=== PATIENT | male | born 1955 | race African-American/Black ===

== ENCOUNTER 2018-06-14 12:02 | Emergency (ER) | payer OTHER ==
[~2018-06-14] VITALS: Ht 167.6 cm; Wt 95.4 kg
[2018-06-14 12:06] VITALS: Ht 167.6 cm; Wt 95.4 kg
--- NOTE | 2018-06-14 15:48 | ERD ---
ER Documentation Chief Complaint Chief Complaint Complains of a cough cold and flu symptoms x 1 week HPI 62-year-old male, previously healthy, presents to the emergency department, complaining of worsening of cough, runny nose, chest congestion and subjective fever for 1 week. Otherwise, the patient denies chest pain, no shortness of breath, no leg edema. The patient has been taking [id number] medication without improvement of the symptoms. ROS All systems reviewed and are negative except as per history of present illness. Medications Home Meds Active Scripts Inhaler, Assist Devices (Compact Space Chamber) 1 Each Spacer, EACH MC Q4 for cough, #1 Prov:SIVA FLORES MD 06/14/18 Guaifenesin-Codeine Phosphate* (Robitussin* AC) 5 Ml Syrup, 5 ML PO TID PRN for COUGH, #60 ML Prov:SIVA FLORES MD 06/14/18 Albuterol Sulfate* (Ventolin HFA*) 18 Gm Hfa.aer.ad, 2 PUFF INHALATION Q4H for cough, #1 INHALER Prov:SIVA FLORES MD 06/14/18 Amoxicillin* (Amoxicillin*) 500 Mg Cap, 500 MG PO TID for 7 Days, CAP Prov:SIVA FLORES MD 06/14/18 Azithromycin* (Zithromax*) 250 Mg Tablet, 250 MG PO .ZPACK DIRECTED, #6 TAB TAKE 500 MG (2 TABS) THE FIRST DAY THEN 250 MG (1 TAB) DAYS 2-5 Prov:SIVA FLORES MD 06/14/18 Allergies Allergies: Coded Allergies: No Known Allergy (Unverified , 06/14/18) PMhx/Soc History of Surgery: No Anesthesia Reaction: No Hx Neurological Disorder: No Hx Respiratory Disorders: No Hx Cardiac Disorders: Yes (HTN) Hx Psychiatric Problems: No Hx Miscellaneous Medical Probl: No Hx Alcohol Use: No Hx Substance Use: No Hx Tobacco Use: No Smoking Status: Never smoker FmHx Family History: No diabetes, No coronary disease Physical Exam Vitals Vital Signs Date Temp Pulse Resp B/P (MAP) Pulse Ox O2 O2 Flow FiO2 Time Delivery Rate 06/14/18 98.6 88 15 131/81 96 Room Air 16:05 (98) 06/14/18 97.7 70 20 157/83 96 12:06 (107) Physical Exam Const: No acute distress Head: Atraumatic Eyes: Normal Conjunctiva ENT: Normal External Ears, Nose and Mouth. Neck: Full range of motion. No meningismus. Resp: Significant rhonchi to auscultation bilaterally Cardio: Regular rate and rhythm, no murmurs Abd: Soft, non tender, non distended. Normal bowel sounds Skin: No petechiae or rashes Back: No midline or flank tenderness Ext: No cyanosis, or edema Neur: Awake and alert Psych: Normal Mood and Affect Procedures/MDM At the time of discharge, patient with nontoxic appearance, vital signs stable, no respiratory distress. Differential diagnosis include but not limited to: Respiratory infection bacterial/viral/fungal. Influenza, COPD, asthma, pneumonia, pneumonitis, allergies, GERD. Less likely foreign body aspiration, cardiac related. Physical examination and clinical presentation consistent most likely with viral infection with early superimposed bacterial infection. During the ED course the patient remained stable, no new complaints. Treatment options and clinical impression discussed with the patient who agrees with management. The patient is stable to be treated outpatient and will be discharged home. Some side effects of prescribed medications (headache, rash, nausea, vomiting, diarrhea, interactions with other medications) were reviewed. The patient needs to follow up with the primary care provider in the next 48h. If symptoms persist, worsen or new symptoms develop, then patient should return to the ED immediately. Disclaimer: Inadvertent spelling and grammatical errors are likely due to EHR/dictation software use and do not reflect on the overall quality of patient care. Also, please note that the electronic time recorded on this note does not necessarily reflect the actual time of the patient encounter. Departure Diagnosis: Primary Impression: Cough Additional Impression: Superimposed infection Condition: Stable Additional Instructions: Thank you very much for allowing us to participate in your care. Your health and safety is our top priority at [facility]. Call your primary care doctor TOMORROW for an appointment during the next 2-4 days and bring all the information and medications prescribed. Have prescriptions filled and follow precisely the directions on the label. If the symptoms get worse and your provider is unavailable, return to the Emergency Department immediately. SIVA FLORES MD Jun 14, 2018 15:48
[2018-06-14] MEDS ORDERED: ALBU18HF INHALATION (15:51)
[2018-06-14] MEDS ORDERED: AZIT250T PO (15:51)
[2018-06-14] MEDS ORDERED: AMOX500C2 PO (15:51)
[2018-06-14] MEDS ORDERED: INHA-3 MC (15:51)
[2018-06-14] MEDS ORDERED: CODE5LIQ2 PO (15:51)
[2018-06-14 16:05] VITALS: BP 131/81; PULSE 88; RESP 15
== END 2018-06-14 16:07 | disposition home or self-care (01) ==
LOC: FTE 12:02
DX: A49.9 Bacterial infection, unspecified (principal); I10 Essential (primary) hypertension
CPT/HCPCS: 99283